=== PATIENT | male | born 1945 | race Hispanic/Latino ===

== ENCOUNTER 2016-08-21 07:39 | Day surgery (SDC) | payer MEDICARE, BC ==
[2016-08-20 12:02] VITALS: BMI 29.2
[2016-08-21 08:27] LABS: ADD MANUAL DIFF? NO
[2016-08-21 08:33] LABS: BASO # 0.02 [, K/mm3] (0.0-2.0); BASO % 0.4 % (0.0-3.0); EOS # 0.2 (0.0-0.7); EOS % 3.9 % (1.5-5.0); GRAN # 2.66 (1.4-6.5); GRAN % 52.3 % (50.0-68.0); HEMATOCRIT 38.9 % (42.0-52.0); LYMPH # 1.7 (1.2-3.4); LYMPH % 33.4 % (22.0-35.0); MEAN CELL VOLUME 91.5 fL (80.0-105.0); MEAN CORPUSCULAR HEMOGLOBIN 30.4 pg (25.0-35.0); MEAN CORPUSCULAR HGB CONC 33.2 g/dl (31.0-37.0); MEAN PLATELET VOLUME 11.1 fl (7.0-11.0); MONO # 0.5 (0.1-0.6); PLATELET COUNT 158 [, 10^3/uL] (120.0-450.0); RED CELL DISTRIBUTION WIDTH 13.2 % (11.5-14.5); WHITE BLOOD COUNT 5.1 [, 10^3/ul] (4.5-11.0)
[2016-08-21 08:39] LABS: BLOOD UREA NITROGEN 23 mg/dL (7-21); CALCIUM 9.3 mg/dL (8.4-10.5); CARBON DIOXIDE 27 mmol/L (21-33); CHLORIDE 103 mmol/L (95-110); GFR AFRICAN-AMERICAN > 60; GLUCOSE,RANDOM 98 mg/dL (70-110); POTASSIUM 4.1 mmol/L (3.6-5.0); SODIUM 140 mmol/L (132-148)
[2016-08-21 08:42] LABS: INR 1.1 (0.93-1.08); PARTIAL THROMBOPLASTIN TIME 26.6 Seconds (23.7-30.8)
--- NOTE | 2016-08-21 09:49 | CARD ---
APPROVED REPORT EKG Measurement Heart [id number] [id number] <Conclusion> Normal sinus rhythm Minimal voltage criteria for LVH, may be normal variant Borderline ECG
[2016-08-21] MEDS ORDERED: Lidocaine 2% Inj (20ml) ONE (11:26)
[2016-08-21] MEDS ORDERED: Iodixanol 320 MG/ML 200 ML BOTTLE IV ONE (11:27)
[2016-08-21] MEDS ORDERED: Midazolam 2 MG/2 ML VIAL ONE ×2 (11:28→12:00)
[2016-08-21] MEDS ORDERED: Iohexol 350mgl/ml 50 ML ONE (12:50)
[2016-08-21] MEDS ORDERED: Sodium Chloride 0.9% 1,000 ML IV SCH (13:00)
--- NOTE | 2016-08-21 13:32 | CARDCATH ---
PROCEDURE DATE: 08/21/2016 HISTORY: The patient is a 71-year-old male with multiple cardiac risk factors who presents with an a bnormal stress test. The patient has had previous stents placed in the past. PROCEDURE: Left heart catheterization, coronary angiography and left ventriculogram, followed by PTC A and stent of an LAD. The right femoral artery was cannulated with a 6-[place] sheath. There were no complications. Findings on catheterization revealed a left ventricle that contracted normally. Estimated ejection f raction is 50-55%. His coronary anatomy revealed a left dominant circulation. The RCA was a small vessel that revealed atherosclerosis without critical lesions. The left main artery was unremarkable. The circumflex artery and obtuse marginal branches were free of significant disease. The LAD revealed a long stent extending into the diagonal vessel. In the proximal portion of the yash nt, there was an 80% stenosis seen best in one view. The patient was started on intravenous Angiomax. Under fluoroscopic guide, the guiding catheter was placed in the ostium of the left main artery. An 0.014 ATW wire was used to cross the lesion. A 2.75 x 12 mm drug-eluting stent was placed and deployed at 12 atmospheres of pressure. Repeat donnell nary angiography revealed an excellent result with no residual stenosis and ADAMS 3 flow. The patient tolerated the procedure well. An Angio-Seal was used to close the femoral artery site. IN SUMMARY: 1. The procedure was successful for percutaneous transluminal coronary angioplasty and stent of a pr oximal 80% stenosis in the left anterior descending. 2. Cardiac catheterization reveals patent stent in the proximal/mid portion of the left anterior abdirahman cending and a diagonal vessel. Left ventricular function is normal. Given these findings, the patient will need to remain on aspirin indefinitely and Plavix for at least 1 year and undergo a strict cardiac risk reduction program. Jason Dc MD cc: [id number] TT: 08/21/2016 13:32:21 ks
[2016-08-22 05:35] VITALS: O2SAT 99
[2016-08-22 06:45] LABS: ADD MANUAL DIFF? NO
[2016-08-22 07:23] LABS: BASO # 0.02 [, K/mm3] (0.0-2.0); BASO % 0.3 % (0.0-3.0); EOS # 0.2 (0.0-0.7); EOS % 2.9 % (1.5-5.0); GRAN # 3.43 (1.4-6.5); GRAN % 59.4 % (50.0-68.0); HEMATOCRIT 36.5 % (42.0-52.0); LYMPH # 1.4 (1.2-3.4); LYMPH % 24.9 % (22.0-35.0); MEAN CELL VOLUME 91.3 fL (80.0-105.0); MEAN CORPUSCULAR HEMOGLOBIN 30.8 pg (25.0-35.0); MEAN CORPUSCULAR HGB CONC 33.7 g/dl (31.0-37.0); MEAN PLATELET VOLUME 11.2 fl (7.0-11.0); MONO # 0.7 (0.1-0.6); MONO % 12.5 % (1.0-6.0); PLATELET COUNT 143 [, 10^3/uL] (120.0-450.0); WHITE BLOOD COUNT 5.8 [, 10^3/ul] (4.5-11.0)
--- NOTE | 2016-08-22 07:56 | CARD ---
APPROVED REPORT EKG Measurement Heart [id number] [id number] <Conclusion> Normal sinus rhythm Leftward axis
--- NOTE | 2016-08-22 08:53 | PN ---
DATE: 08/22/2016 CARDIOLOGY FOLLOWUP The patient is asymptomatic. He is ambulating without symptoms. The patient is status post PTCA and stent of the LAD with a drug-eluting stent. PHYSICAL EXAMINATION: VITAL SIGNS: Blood pressure is 143/76. The heart rate is in the 70s. NECK: Negative JVD. LUNGS: Without rales. HEART: Reveals S1, S2. EXTREMITIES: Without edema. LABORATORY DATA: Hemoglobin is 12.3. Chemistries were not drawn today. IMPRESSION: 1. Stable post percutaneous transluminal coronary angioplasty and stent of a left anterior descendin g. 2. Coronary artery disease. 3. Hypercholesterolemia. 4. Hypertension. Given these findings, the patient is stable for discharge. We will refer the patient for cardiac luana ab for continued cardiac risk reduction program. In addition, I have discussed with the patient about his need for Plavix for at least 1 year and unde rgo strict cardiac risk reduction program. Jason Dc MD cc: [id number] TT: 08/22/2016 08:33:07 Confirmation # [id number] Dictation # [id number] yuly
[2016-08-22 12:52] VITALS: BP 157/84; PULSE 97; RESP 20; TEMP 97.5
--- NOTE | 2016-08-22 15:40 | HP ---
HISTORY OF PRESENT ILLNESS: The patient is a 71-year-old male who was brought in electively for card iac catheterization. Underwent cardiac catheterization and had angioplasty done with drug-eluted yash nt of LAD. He had stress test done on 08/17/2016 and was found to be abnormal, so he was scheduled f or outpatient cardiac catheterization followed by angioplasty. PAST MEDICAL HISTORY: He has significant past medical history of: 1. Hypertension. 2. Hyperlipidemia. 3. History of cardiac catheterization in 09/2014. 4. Hyperlipidemia. ALLERGIES: He is not allergic to any medications. MEDICATIONS AT HOME: He is on: 1. Aspirin 81 daily. 2. Lipitor 40 mg daily. 3. Benicar 40 mg daily. 4. Plavix 75 daily. 5. Metoprolol 25 twice a day. SOCIAL HISTORY: He is , lives with his . No history of smoking, drinking or alcohol use. REVIEW OF SYSTEMS: Unremarkable. PHYSICAL EXAMINATION: GENERAL: He is awake and alert, communicative. VITAL SIGNS: He is afebrile, pulse 75, respirations 16, blood pressure 128/72. LUNGS: Bilateral good airflow, no rhonchi or crackle. HEART: S1, S2 audible. No murmur. ABDOMEN: Soft, nontender, no rebound, no guarding. NEUROLOGIC: The patient is awake and alert and able to communicate. LABORATORY DATA: WBC is 5.8, hemoglobin 12.3, hematocrit 36.5, platelet of 143. Chemistry: Sodium 140, potassium 4.1, chloride 103, CO2 of 27, BUN 23, creatinine 1.0, blood sugar of 98. ASSESSMENT: 1. Abnormal stress test and had cardiac catheterization requiring left anterior descending stenting. 2. Hypertension. 3. Hyperlipidemia. PLAN: The patient is being discharged home today. He will resume his medication including Benicar 4 0 mg daily, Lipitor 40 mg daily, aspirin 81 daily, metoprolol 25 twice a day and Plavix 75 daily. Fauzia Machado MD cc: [id number] TT: 08/22/2016 12:54:26 md 08/22/2016 14:39:08
== END 2016-08-22 13:29 | disposition home or self-care (01) ==
LOC: CATH 07:39 → 2RSO 12:56 → CATH 08-22 13:29
PROVIDERS: ATTEND Internal Medicine
DX: I25.10 Atherosclerotic heart disease of native coronary artery without angina pectoris (principal); E78.00 Pure hypercholesterolemia, unspecified; I10 Essential (primary) hypertension; E78.5 Hyperlipidemia, unspecified; Z95.5 Presence of coronary angioplasty implant and graft
CPT/HCPCS: 36415 ×2; 80048 ×2; 85025 ×2; 85610; 85730; 86850; 86900; 93005; 93458; 99152; 99153; C1760; C1769 ×2; C1874; C1887 ×2; C2629; C9600; J0583; J1644; J2250; J3010; J7040 ×2; Q9967

== ENCOUNTER 2018-06-23 06:33 | Outpatient (CLI) | payer MEDICARE, BC | END 2018-06-23 06:34 | disposition home or self-care (01) | LOC: CARDIO 06:33 | DX: I25.10 Atherosclerotic heart disease of native coronary artery without angina pectoris (principal); I10 Essential (primary) hypertension ==